=== PATIENT | female | born 1960 | race African-American/Black ===

== ENCOUNTER 2023-10-09 14:02 | Emergency (ER) | payer OTHER ==
[~2023-10-09] VITALS: Ht 160 cm; Wt 82.6 kg
[2023-10-09] MEDS ORDERED: AVAPRO300 MG PO (14:12)
[2023-10-09] MEDS ORDERED: CATAPRES0.3 MG (14:13)
[2023-10-09 18:08] LABS: HEMATOCRIT 34.7 % (36.0-45.00); HEMOGLOBIN 11.8 g/dL (12.0-15.00); MEAN CELL VOLUME 85.6 fL (80.00-100.00); MEAN CORPUSCULAR HGB CONC 33.9 g/dl (32.0-36.0); PLATELET COUNT 309 K/uL (150-450); RED BLOOD COUNT 4.05 M/uL (4.00-6.00); RED CELL DISTRIBUTION WIDTH 13.7 % (11.5-14.5)
[2023-10-09] MEDS ORDERED: MUCINEX FAST-M180 M2 PO (18:56)
[2023-10-09] MEDS ORDERED: ZITHROMAX500 MG PO (18:56)
== END 2023-10-09 19:00 | disposition home or self-care (01) ==
LOC: ER 14:02
PROVIDERS: Nurse Practitioner Family
DX: J06.9 Acute upper respiratory infection, unspecified (principal); I10 Essential (primary) hypertension